=== PATIENT | male | born 1950 | race Caucasian/White ===

== ENCOUNTER → 2019-06-14 11:44 | Outpatient (CLI) | payer MEDICARE, OTHER, SELFPAY ==
--- NOTE | 2019-06-14 | DI.RAD.S_ITS ---
PROCEDURE: XR CHEST 2V INDICATIONS: PNEUMONIA TECHNIQUE: 2 views of the chest were acquired. COMPARISON: [facility], , CHEST 2 VIEW, 03/11/2014, 8:36. FINDINGS: Surgical changes and devices: None. Lungs and pleura: Mild central airway thickening is present. No acute consolidation. Scattered atelectasis. No pleural effusions or pneumothorax. Mediastinum: Mediastinal contours are normal. Heart size is normal. Bones and chest wall: No suspicious bony abnormalities. Soft tissues appear unremarkable. IMPRESSION: Airway thickening suggestive of viral bronchitis and/or reactive airways disease Dictated by: Gabriele Prescott M.D. on 06/14/2019 at 15:31 Approved by: Gabriele Prescott M.D. on 06/14/2019 at 15:33
== END ==
PROVIDERS: PCP Family Medicine; Visit Provider Family Medicine
DX: J18.9 Pneumonia, unspecified organism (principal)
CPT/HCPCS: 71046

== ENCOUNTER → 2019-07-11 09:26 | Outpatient (CLI) | payer MEDICARE, OTHER, SELFPAY ==
--- NOTE | 2019-07-11 09:28 | DI.RAD.S_ITS ---
PROCEDURE: FL BARIUM SWALLOW INDICATIONS: Progressive symptoms coughing postprandially, rule out aspir COMPARISON: None. FINDINGS: Function: There is delayed esophageal clearance and decreased esophageal peristalsis. No elicited gastroesophageal reflux. Morphology: Air-contrast images demonstrate normal mucosal morphology. Single contrast views show no esophageal strictures, extrinsic mass effects, or diverticula. Limited images of the stomach demonstrate normal appearance. IMPRESSION: Esophageal dysmotility. If there is clinical suspicion of aspiration, recommend dedicated modified barium swallow with speech therapy service Dictated by: Gabriele Prescott M.D. on 07/11/2019 at 10:24 Approved by: Gabriele Prescott M.D. on 07/11/2019 at 10:25
== END ==
PROVIDERS: PCP Family Medicine; Referring Provider Family Medicine; Visit Provider Family Medicine
DX: K21.9 Gastro-esophageal reflux disease without esophagitis (principal); K22.4 Dyskinesia of esophagus; R05 Cough
CPT/HCPCS: 74220

== ENCOUNTER → 2019-10-31 10:02 | Outpatient (CLI) | payer MEDICARE, OTHER, SELFPAY ==
--- NOTE | 2019-10-31 10:03 | DI.RAD.S_ITS ---
PROCEDURE: FL BARIUM SWALLOW W SPEECH INDICATIONS: Progressive symptoms coughing postprandially, rule out aspir TECHNIQUE: Examination was conducted in conjunction with speech pathology per standard protocol. In the lateral projection, filming was performed of the patient swallowing. AP projection filming may also be performed with patient swallowing. COMPARISON: None. FINDINGS: Function: The oral preparatory phase appears normal, with proper containment. The subsequent oral propulsive phase, pharyngeal phase, and esophageal phase of swallowing also appear normal with all proffered substances. Minimal laryngotracheal penetration without aspiration. No pathologic vallecular pooling. Morphology: No cricopharyngeal bar is identified. No cervical esophageal webs. No Zenker's diverticulum. No strictures. IMPRESSION: Minimal laryngotracheal penetration without aspiration. Dictated by: Lucy Wagoner MD, PhD on 10/31/2019 at 12:17 Approved by: Lucy Wagoner MD, PhD on 10/31/2019 at 12:17
--- NOTE | 2019-11-02 17:58 | ST.SWALLOW ---
Visit Care Team Role Provider Type Edmar Enriquez DO Attending Provider Physician Primary Care Provider Referring Provider Specialty: Family Practice Address: [address] [place] [address], [id number] Email: [email or web address] Modified Barium Swallow Study [employer] Modified Barium Swallow Study Start: 10/31/19 16:03 Freq: Status: Active Protocol: Document 10/31/19 16:04 LL (Rec: 10/31/19 16:10 LL [id number]) Modified Barium Swallow Study Total Time Visit Start Time 10:30 Visit Stop Time 10:50 Total Visit Minutes 20 Referral Referring Physician Edmar Enriquez MD Reason for Referral Progressive symptoms coughing postprandially, rule out aspiration Setting Setting Outpatient Care Patient Information Identification Type Name,ID Card Patient History Willem is a 68-year-old male referred by Dr. Edmar Enriquez to assess Willem?s swallow function and rule out dysphagia/aspiration. Willem has a dx of GERD, however, reported that he is currently not taking any medications to control his GERD symptoms. Willem received a Barium Swallow X-Ray this past June at [facility] with Dr. Gabriele Prescott. Results concluded that Willem presented with esophageal dysmotility. Willem reported that he tries to avoid certain foods to reduce GERD symptoms . Willem reported that intermittently dry coughs after meals. Willem also reported that he has been experiencing vocal changes for some period of time. Subjective Observations Willem arrived on time and provided a brief case history. He was able to follow all instructions. Patient Positioning Position View Lat-A/P Imaging Lateral View Textures Administered Trials Presented Thin Liquid via Cup,Thin Liquid via Straw,[place] Liquid via Cup,Regular Textures, Barium Tablet Oral Phase Source: MBSIMP (TM) (C) Bolus Specific Scoring Grid Lip Closure WFL Tongue Control During Bolus Hold No Impairment (WNL) Bolus Prep/Mastication WFL Bolus Transport/Lingual Motion WFL A/P Lingual Propulsion Delay No Oral Residue Minimal Impairment Residue Clearing WFL Nasal Regurgitation No Additional Oral Phase Observations Oral Peripheral Exam: Symmetrical structures WNL of strength, coordination, and ROM. Patient has natural dentition surrounding upper and lower partials. Dentition is in adequate condition. Oral Phase: WFL. Minimal oral residue present which cleared with 1-2 dry swallows, not abnormal for intake of barium contrast. Pharyngeal Phase Source: MBSIMP (TM) (C) Bolus Specific Scoring Grid Delayed Initiation of Pharyngeal Swallow Yes: mild premature loss to vallecula with thin, NTL, and cookie Soft Palate Elevation Minimal Impairment Tongue Base Strength/Range of Motion Minimal Impairment Residue Along the Tongue Base Yes: mild ; cleared with dry swallow Clearance of Residue Along Tongue Base WFL Laryngeal Elevation Minimal Impairment Anterior Hyoid Movement WFL Epiglottic Range of Motion WFL Vallecular Residue Yes: mild ; cleared with dry swallow Clearance of Vallecular Residue No Impairment (WNL) Laryngeal Vestibular Closure Minimal Impairment Pharyngeal Stripping Wave WFL Pharyngeal Contraction WFL Posterior Pharyngeal Wall Residue Yes: minimal ; cleared with dry swallow Clearance of Posterior Pharyngeal Wall WFL Residue Upper Esophageal Sphincter Opening WFL Residue in the Pyriform Sinuses Yes: mild ; cleared with dry swallow Clearance of Residue in the Pyriform WFL Sinuses Esophageal Clearance Upright Position WFL Pharyngoesophageal Backflow Observed No Additional Pharyngeal Phase Observations Mildly delayed swallow reflex with increased bolus size/ weight to the level of the vallecula and x 1 to the level of the pyriform sinuses ( normal bolus size of thin liquid). Mild penetration observed with normal size cup sip and straw sip of thin liquid. Penetration not observed when bolus size was reduced and with no use of straw (e.g., small sip of thin liquid from cup). Minimal- mild residue was observed at the tongue base, posterior pharyngeal wall, vallecula, and pyriform sinuses. Residues cleared with 1-2 dry swallows . A/P View Textures Administered Trials Presented Thin Liquid via Cup,Barium Tablet A/P View Observations Pharyngeal Contraction WFL Vocal Fold Function Good Esophageal Function Slowed Clearing,Poor Motility Additional Observations Slow clearing (minimal-mild) and decreased esophageal dysmotility observed. Esophageal Observations Esophageal Function Rapid bolus flow through esophagus and into stomach was observed. Upon video review, minimal/mild residue was observed mid level of esophagus likely due to esophageal dysmotility. Clinical Impressions Dysphagia Type WFL Findings Willem presents with minimal- mild pharyngeal residues and minimal penetration above the level of the vocal folds with liquids only. These findings are consistent with a normal aging swallow function. Vocal changes may be due to GERD symptoms. The patient was educated of findings and recommended to consume small bites/sips, no straw use, dry swallow after every other bite /sip to clear minimal residues , and sit upright as possible (90 degrees) during oral intake. Rehabilitation Potential Excellent Patient Appropriate for Therapy Yes Recommendations Diet Liquids Order Thin Diet Order Regular Medication Recommendation As Tolerated Additional Dietary Needs No Straws Aspiration Precautions Recommended Precautions Upright at 90 Degrees,Small Bites/Sips,Liquids from Cup Treatment Plan Therapy Recommendations Outpatient Speech Therapy, Compensatory Strategy Education,GERD/Vocal Hygiene Education Recommended Referrals Primary Care Physician Compensatory Strategies Recommendations Sitting Upright (90 deg),No Straw,Liquids from Cup,Small Bites and Sips Additional Compensatory Strategies Dry swallow after every other Recommended bite/sip to clear minimal residues Short Term Goals Willem will tolerate regular texture diet and thin liquids without any overt s/sx of aspiration. *Goal measured by patient report. Willem will verbalize understanding of education for MBSS results/findings, diet recommendations, compensatory swallow strategies, and GERD/ vocal hygiene education. Willem will perform safe swallow strategies to improve protection of airway and reduce risk of aspiration. * Goal measured by patient report and training in speech therapy. Correction Goals Willem will tolerate regular texture diet and thin liquids with use of compensatory swallow strategies without any overt s/sx of aspiration. Placement Recommendation After Discharge Home Additional Recommendations/Comments Recommend follow up with primary care physician to address GERD symptoms (e.g., starting medication to reduce s/sx of GERD). Follow up x 1-2 to review modified barium swallow study (MBSS) results, train safety swallow strategies, and provide patient education on compensatory swallow strategies and GERD/vocal hygiene.
== END ==
PROVIDERS: PCP Family Medicine; Referring Provider Family Medicine; Visit Provider Family Medicine
DX: K21.9 Gastro-esophageal reflux disease without esophagitis (principal); R05 Cough
CPT/HCPCS: 74230; 92611

== ENCOUNTER → 2019-11-09 14:56 | Outpatient (CLI) | payer MEDICARE, OTHER, SELFPAY ==
[2019-11-09 17:49] LABS: Prostate Specific Antigen Scrn 2.85 ng/mL (0.1-4.0)
== END ==
PROVIDERS: PCP Family Medicine; Referring Provider Family Medicine; Visit Provider Family Medicine
DX: K63.5 Polyp of colon (principal); Z12.5 Encounter for screening for malignant neoplasm of prostate
CPT/HCPCS: 36415; G0103

== ENCOUNTER → 2020-06-12 08:46 | Outpatient (CLI) | payer MEDICARE, OTHER, SELFPAY ==
[2020-06-12 09:48] LABS: Add Manual Diff / Slide Review NO; Basophils Absolute Auto 100 /uL (0-100); Basophils Percent Auto 1.2 % (0-2); Eosinophils Absolute Auto 200 /uL (0-450); Hematocrit 40.4 % (41-53); Hemoglobin 14.2 g/dL (13.5-17.5); Lymphocytes Absolute Auto 900 /uL (1100-4500); Lymphocytes Percent Auto 19.2 % (25-40); Mean Corpuscular HGB Conc 35.2 % (30-36); Mean Corpuscular Hemoglobin 32.4 PG (26-34); Mean Corpuscular Volume 92.3 fL (80-100); Monocytes Absolute Auto 500 /uL (0-900); Monocytes Percent Auto 9.5 % (3-14); Neutrophils Absolute Auto 3200 /uL (1500-7000); Neutrophils Percent Auto 65.1 % (50-75); Platelet Count 200 X10^3/uL (150-400); Red Blood Cell Count 4.38 X10^6/uL (4.5-5.9); Red Cell Distribution Width 13.3 % (11.6-14.8); White Blood Cell Count 4.9 X10^3/uL (4.5-11.0)
[2020-06-12 10:04] LABS: Hemoglobin A1C% w Est Avg Glu 5.4 % (4.0-6.0)
[2020-06-12 10:17] LABS: Alanine Aminotransferase 24 IU/L (<50); Albumin 4.2 g/dL (3.5-5.0); Albumin Globulin Ratio 1.3 (1.0-2.8); Alkaline Phosphatase 55 U/L (38-126); Aspartate Aminotransferase 40 IU/L (17-59); BUN Creatinine Ratio 22.6 (6-22); Bilirubin Total 0.5 mg/dL (0.2-1.3); Blood Urea Nitrogen 24 mg/dL (9-20); Calcium 8.9 mg/dL (8.4-10.2); Carbon Dioxide 27 mmol/L (22-32); Chloride 105 mmol/L (98-107); Cholesterol 152 mg/dL (140-199); Estimated Glomerular Filt Rate > 60.0 mL/min (>60); Globulin 3.3 g/dL (1.7-4.1); Glucose 110 mg/dL (80-110); HDL Cholesterol 57 mg/dL (40-60); HEMOLYSIS < 15 (0-50); LDL Cholesterol Calculated 80 mg/dL (<100); Potassium 4.5 mmol/L (3.4-5.1); Sodium 136 mmol/L (137-145); Total Protein 7.5 g/dL (6.3-8.2); Triglycerides 77 mg/dL (35-150)
[2020-06-12 10:42] LABS: Prostate Specific Antigen Scrn 2.82 ng/mL (0.1-4.0)
== END ==
PROVIDERS: PCP Family Medicine; Referring Provider Family Medicine; Visit Provider Family Medicine
DX: I10 Essential (primary) hypertension (principal); Z12.5 Encounter for screening for malignant neoplasm of prostate; I48.91 Unspecified atrial fibrillation; K21.9 Gastro-esophageal reflux disease without esophagitis
CPT/HCPCS: 36415; 80053; 80061; 83036; 85025; G0103